=== PATIENT | female | born 1985 | race Caucasian/White ===

== ENCOUNTER 2017-11-05 20:46 | Inpatient (IN) | payer BC ==
[2017-11-05] MEDS: morphine 2 MG INJ IV (21:44)
[2017-11-05] MEDS ORDERED: morphine 2 MG INJ IV (22:00)
[2017-11-05] MEDS ORDERED: DOCUSATE SODIUM 100 MG CAP PO (22:00)
[2017-11-05] MEDS ORDERED: ACETAMINOPHEN 325 MG TAB PO (22:00)
[2017-11-05] MEDS ORDERED: ONDANSETRON 4 MG TAB PO (22:00)
[2017-11-05] MEDS ORDERED: BISACODYL (EC) 5 MG TAB PO (22:00)
[2017-11-05] MEDS ORDERED: NACL 0.9% 3 ML SYG IV (22:00)
[2017-11-05] MEDS ORDERED: VANCOMYCIN IV PER PHARMACY XX (22:00)
[2017-11-05 22:21] LABS: ADD MAN DIFF? NO
[2017-11-05 22:23] LABS: WHITE BLOOD COUNT 4.1 10^3/ul (4.8-10.8)
[2017-11-05 22:23] LABS: BASOPHILS % 0.7 % (0.0-2.0); EOSINOPHILS # 0.2 10^3/ul (0.0-0.5); EOSINOPHILS % 4.2 % (0.0-7.0); HEMATOCRIT 24.9 % (37.0-47.0); HEMOGLOBIN 7.8 g/dl (12.0-16.0); LYMPHOCYTES # 1.5 10^3/ul (0.8-2.9); LYMPHOCYTES % 36.9 % (15.0-51.0); MEAN CORPUSCULAR HEMOGLOBIN 27.3 pg (29.0-33.0); MEAN CORPUSCULAR HGB CONC 31.3 g/dl (32.0-37.0); MEAN CORPUSCULAR VOLUME 87.1 fl (82.0-101.0); MEAN PLATELET VOLUME 10.7 fl (7.4-10.4); MONOCYTE # 0.4 10^3/ul (0.3-0.9); MONOCYTES % 9.9 % (0.0-11.0); NEUTROPHILS % 48.1 % (39.0-77.0); PLATELET COUNT 213 10^3/UL (140-415); RED BLOOD COUNT 2.86 10^6/ul (4.20-5.40); RED CELL DISTRIBUTION WIDTH 13.8 % (11.5-14.5)
[2017-11-05] MEDS: metroNIDAZOLE 500 MG/NS (PMX) 100 ML IVPB (22:28)
[2017-11-05] MEDS ORDERED: LORAZEPAM 2 MG INJ IV (22:30)
[2017-11-05] MEDS ORDERED: GLUCOSE GEL 15 GRAM TUBE PO ×2 (22:30)
[2017-11-05] MEDS ORDERED: GLUCAGON 1 MG INJ IM (22:30)
[2017-11-05] MEDS ORDERED: DEXTROSE 50% 50 ML SYRINGE IV ×2 (22:30)
[2017-11-05] MEDS: HYDROmorphONE 1 MG/ML SYG IV (22:43)
[2017-11-05 22:49] LABS: ANION GAP 10 (8-16); BLOOD UREA NITROGEN 21 mg/dl (7-20); CALCIUM 8.5 mg/dl (8.4-10.2); CARBON DIOXIDE 30 mmol/L (21-31); CHLORIDE 97 mmol/L (97-110); CREATININE 0.72 mg/dl (0.44-1.00); POTASSIUM 5.1 mmol/L (3.5-5.1); SODIUM 132 mmol/L (135-144)
[2017-11-05 22:54] LABS: GLUCOSE 573 mg/dl (70-220)
[2017-11-05] MEDS: LEVOFLOXACIN 750MG/D5W (PMX) 150 ML IVPB (23:18)
[2017-11-05] MEDS: hydrALAzine 20 MG INJ IV (23:21)
[2017-11-05] MEDS: INSULIN ASPART [NOVOLOG] 3 ML PEN SC (23:22)
[2017-11-05] MEDS: INSULIN GLARGINE [LANtus] 3 ML PEN SC (23:32)
[2017-11-06] MEDS: HYDROCODONE/APAP (5/325) TAB PO
[2017-11-06] MEDS: VANCOMYCIN 1.5 GM in SOD CHLORIDE 0.9% 250 ML IVPB (00:57)
[2017-11-06 01:31] LABS: GLUCOSE 506 mg/dl (70-220)
[2017-11-06] MEDS: ACCU-CHEK XX (01:38)
[2017-11-06] MEDS: INSULIN ASPART [NOVOLOG] 3 ML PEN SC ×8 (01:50→21:51)
[2017-11-06 03:24] LABS: BARBITURATES Positive (NEGATIVE)
[2017-11-06] MEDS: HYDROmorphONE 1 MG/ML SYG IV ×6 (03:25→23:53)
[2017-11-06 03:32] LABS: AMPHETAMINE/METHAMPHETAMINE Negative (NEGATIVE); BENZODIAZEPINES Negative (NEGATIVE); CANNABINOIDS Negative (NEGATIVE); COCAINE Negative (NEGATIVE); OPIATES Positive (NEGATIVE)
[2017-11-06] MEDS: metroNIDAZOLE 500 MG/NS (PMX) 100 ML IVPB ×3 (05:40→21:40)
[2017-11-06 06:03] LABS: ADD MAN DIFF? NO
[2017-11-06 06:07] LABS: BASOPHILS % 0.6 % (0.0-2.0); EOSINOPHILS # 0.2 10^3/ul (0.0-0.5); EOSINOPHILS % 5.1 % (0.0-7.0); HEMOGLOBIN 7.9 g/dl (12.0-16.0); LYMPHOCYTES # 1.3 10^3/ul (0.8-2.9); LYMPHOCYTES % 37.8 % (15.0-51.0); MEAN CORPUSCULAR HEMOGLOBIN 28.2 pg (29.0-33.0); MEAN CORPUSCULAR HGB CONC 32.9 g/dl (32.0-37.0); MEAN CORPUSCULAR VOLUME 85.7 fl (82.0-101.0); MEAN PLATELET VOLUME 10.3 fl (7.4-10.4); MONOCYTE # 0.4 10^3/ul (0.3-0.9); MONOCYTES % 12.5 % (0.0-11.0); NEUTROPHIL # 1.6 10^3/ul (1.6-7.5); PLATELET COUNT 211 10^3/UL (140-415); RED CELL DISTRIBUTION WIDTH 13.7 % (11.5-14.5)
[2017-11-06 06:07] LABS: WHITE BLOOD COUNT 3.5 10^3/ul (4.8-10.8)
[2017-11-06 07:01] LABS: ALANINE AMINOTRANSFERASE 30 IU/L (13-69); ALBUMIN/GLOBULIN RATIO 0.93; ALKALINE PHOSPHATASE 140 IU/L (42-121); ANION GAP 8 (8-16); ASPARTATE AMINO TRANSFERASE 19 IU/L (15-46); BLOOD UREA NITROGEN 20 mg/dl (7-20); CALCIUM 8.9 mg/dl (8.4-10.2); CARBON DIOXIDE 30 mmol/L (21-31); CHLORIDE 103 mmol/L (97-110); CHOL/HDL RATIO 2.6 RATIO; CHOLESTEROL 194 mg/dl (100-200); CREATININE 0.74 mg/dl (0.44-1.00); GLUCOSE 134 mg/dl (70-220); HDL CHOLESTEROL 74 mg/dl (34-82); LDL CHOLESTEROL,CALCULATED 105 mg/dl; POTASSIUM 4.5 mmol/L (3.5-5.1); SODIUM 136 mmol/L (135-144); TOTAL PROTEIN 6.2 g/dl (6.1-8.1); TRIGLYCERIDES 73 mg/dl (0-149)
[2017-11-06 07:09] LABS: IRON 27 ug/dl (35-150)
[2017-11-06 07:18] LABS: % IRON SATURATION 9 % SAT (22-52); TOTAL IRON BINDING CAPACITY 296 ug/dl (241-421)
[2017-11-06 07:55] LABS: HEMOGLOBIN A1C 10.2 % (0-5.9)
[2017-11-06] MEDS: DIPHENHYDRAMINE 50 MG CAP PO (08:14)
[2017-11-06] MEDS: CYCLOBENZAPRINE 10 MG TAB PO (08:16)
[2017-11-06] MEDS: ENOXAPARIN 40 MG/0.4 ML SYG SC (08:16)
[2017-11-06] MEDS: SUMATRIPTAN 50 MG TAB PO (11:42)
[2017-11-06] MEDS: FOSFOMYCIN 3 GM PACKET PO (11:42)
[2017-11-06] MEDS: INSULIN GLARGINE [LANtus] 3 ML PEN SC ×2 (11:50→22:03)
[2017-11-06] MEDS: VANCOMYCIN 1 GM 250 ML IVPB (12:42)
[2017-11-06 14:10] LABS: OCCULT BLOOD STOOL NEGATIVE (NEGATIVE)
[2017-11-06] MEDS ORDERED: INSULIN GLARGINE [LANtus] 3 ML PEN SC (21:00)
[2017-11-06] MEDS: DIAZEPAM 5 MG TAB PO (23:52)
[2017-11-07] MEDS: LEVOFLOXACIN 750MG/D5W (PMX) 150 ML IVPB ×2 (00:03→23:20)
[2017-11-07] MEDS ORDERED: ALBUTEROL/IPRATROPIUM (NEB) 3 ML AMP (00:37)
[2017-11-07] MEDS: ACCU-CHEK XX (02:00)
[2017-11-07] MEDS: VANCOMYCIN 1 GM 250 ML IVPB ×2 (02:10→15:22)
[2017-11-07] MEDS: INSULIN ASPART [NOVOLOG] 3 ML PEN SC ×8 (02:36→20:17)
[2017-11-07] MEDS: HYDROmorphONE 1 MG/ML SYG IV ×5 (04:00→19:59)
[2017-11-07] MEDS: metroNIDAZOLE 500 MG/NS (PMX) 100 ML IVPB ×3 (05:52→21:46)
[2017-11-07] MEDS: ENOXAPARIN 40 MG/0.4 ML SYG SC (09:00)
[2017-11-07] MEDS: GLUCOSE GEL 15 GRAM TUBE BUCCAL (10:06)
[2017-11-07] MEDS: ALBUTEROL/IPRATROPIUM (NEB) 3 ML AMP HHN (10:49)
[2017-11-07] MEDS: TIZANIDINE 2 MG TAB PO ×2 (14:03→20:05)
[2017-11-07 14:53] LABS: VANCOMYCIN,TROUGH 13.8 ug/ml (10.0-20.0)
[2017-11-07 15:02] LABS: GLUCOSE 361 mg/dl (70-220)
[2017-11-07] MEDS: DIPHENHYDRAMINE 50 MG INJ IV (16:09)
[2017-11-07] MEDS: SODIUM HYPOCHLORITE 1/40% 1L IRRIG IRR (20:06)
[2017-11-07] MEDS: INSULIN GLARGINE [LANtus] 3 ML PEN SC (20:18)
[2017-11-08] MEDS: HYDROCODONE/APAP (5/325) TAB PO ×2 (00:15→21:31)
[2017-11-08] MEDS: HYDROmorphONE 1 MG/ML SYG IV ×4 (01:02→14:16)
[2017-11-08] MEDS: INSULIN ASPART [NOVOLOG] 3 ML PEN SC ×10 (01:22→21:11)
[2017-11-08] MEDS: ACCU-CHEK XX (02:00)
[2017-11-08] MEDS: VANCOMYCIN 1 GM 250 ML IVPB ×2 (03:29→16:16)
[2017-11-08] MEDS: metroNIDAZOLE 500 MG/NS (PMX) 100 ML IVPB ×3 (05:27→21:33)
[2017-11-08 05:37] LABS: ADD MAN DIFF? NO
[2017-11-08 05:43] LABS: BASOPHILS % 0.5 % (0.0-2.0); EOSINOPHILS # 0.1 10^3/ul (0.0-0.5); EOSINOPHILS % 2.6 % (0.0-7.0); HEMATOCRIT 24.3 % (37.0-47.0); HEMOGLOBIN 7.7 g/dl (12.0-16.0); LYMPHOCYTES # 1.1 10^3/ul (0.8-2.9); LYMPHOCYTES % 29.4 % (15.0-51.0); MEAN CORPUSCULAR HEMOGLOBIN 27.1 pg (29.0-33.0); MEAN CORPUSCULAR HGB CONC 31.7 g/dl (32.0-37.0); MEAN CORPUSCULAR VOLUME 85.6 fl (82.0-101.0); MEAN PLATELET VOLUME 10.5 fl (7.4-10.4); MONOCYTE # 0.2 10^3/ul (0.3-0.9); MONOCYTES % 4.9 % (0.0-11.0); NEUTROPHIL # 2.4 10^3/ul (1.6-7.5); NEUTROPHILS % 62.3 % (39.0-77.0); PLATELET COUNT 192 10^3/UL (140-415); RED BLOOD COUNT 2.84 10^6/ul (4.20-5.40); RED CELL DISTRIBUTION WIDTH 13.6 % (11.5-14.5)
[2017-11-08 05:43] LABS: WHITE BLOOD COUNT 3.9 10^3/ul (4.8-10.8)
[2017-11-08 06:21] LABS: ALANINE AMINOTRANSFERASE 23 IU/L (13-69); ALBUMIN 2.8 g/dl (3.3-4.9); ALBUMIN/GLOBULIN RATIO 0.93; ALKALINE PHOSPHATASE 166 IU/L (42-121); ANION GAP 11 (8-16); ASPARTATE AMINO TRANSFERASE 24 IU/L (15-46); BILIRUBIN,INDIRECT 0.1 mg/dl (0-1.1); BILIRUBIN,TOTAL 0.1 mg/dl (0.2-1.3); BLOOD UREA NITROGEN 24 mg/dl (7-20); CALCIUM 8.4 mg/dl (8.4-10.2); CARBON DIOXIDE 26 mmol/L (21-31); CHLORIDE 102 mmol/L (97-110); CREATININE 0.72 mg/dl (0.44-1.00); GLUCOSE 350 mg/dl (70-220); POTASSIUM 4.9 mmol/L (3.5-5.1); SODIUM 134 mmol/L (135-144); TOTAL PROTEIN 5.8 g/dl (6.1-8.1)
[2017-11-08 08:19] LABS: ERYTHROCYTE SEDIMENTATION RATE 55 mm/Hr (0-20)
[2017-11-08] MEDS: ENOXAPARIN 40 MG/0.4 ML SYG SC (09:00)
[2017-11-08] MEDS: TIZANIDINE 2 MG TAB PO ×3 (09:26→21:27)
[2017-11-08] MEDS: SOD CHLORIDE 0.45% 1,000 ML IV (09:27)
[2017-11-08] MEDS: SODIUM HYPOCHLORITE 1/40% 1L IRRIG IRR ×2 (09:28→21:00)
[2017-11-08] MEDS: DIPHENHYDRAMINE 50 MG INJ IV ×2 (11:21→20:48)
[2017-11-08] MEDS: ALBUTEROL/IPRATROPIUM (NEB) 3 ML AMP HHN (14:57)
[2017-11-08] MEDS: MEPERIDINE 25 MG INJ IV (18:55)
[2017-11-08] MEDS ORDERED: FENTAnyl 50 MCG/ML VIAL (19:54)
[2017-11-08] MEDS ORDERED: LIDOCAINE 2% (SDV) 5 ML INJ (19:54)
[2017-11-08] MEDS ORDERED: PROPOFOL 20 ML (19:54)
[2017-11-08] MEDS ORDERED: MIDAZOLAM 1 MG/ML 2 ML INJ (19:54)
[2017-11-08] MEDS ORDERED: OXYCODONE/ACETAMINOPHEN (5/325) TAB PO ×2 (20:00)
[2017-11-08] MEDS ORDERED: HYDROmorphONE 1 MG/5 ML IV SYRINGE IV (20:00)
[2017-11-08] MEDS ORDERED: PROCHLORPERAZINE 10 MG INJ IV (20:00)
[2017-11-08] MEDS ORDERED: FENTAnyl 50 MCG/ML VIAL IV (20:00)
[2017-11-08] MEDS ORDERED: ONDANSETRON 4 MG INJ IV (20:00)
[2017-11-08] MEDS ORDERED: MEPERIDINE 25 MG INJ IV (20:00)
[2017-11-08] MEDS ORDERED: ONDANSETRON 4 MG INJ (20:06)
[2017-11-08] MEDS ORDERED: ACETAMINOPHEN 1000MG/100ML IV 100 ML (20:06)
[2017-11-08] MEDS ORDERED: FAMOTIDINE 20 MG INJ (20:06)
[2017-11-08] MEDS: LIDOCAINE 2% (MDV) 20 ML INJ (20:34)
[2017-11-08] MEDS: HYDROmorphONE 1 MG/5 ML IV SYRINGE IV ×2 (20:40→20:54)
[2017-11-08] MEDS: FENTAnyl 50 MCG/ML VIAL IV ×2 (20:42→20:53)
[2017-11-08] MEDS: FERROUS SULFATE (EC) 325 MG TAB PO (21:27)
[2017-11-08] MEDS: INSULIN GLARGINE [LANtus] 3 ML PEN SC (21:36)
[2017-11-08] MEDS: LEVOFLOXACIN 750MG/D5W (PMX) 150 ML IVPB (23:02)
[2017-11-09] MEDS: HYDROmorphONE 1 MG/ML SYG IV ×6 (00:36→20:47)
[2017-11-09] MEDS: ACCU-CHEK XX (01:55)
[2017-11-09] MEDS: VANCOMYCIN 1 GM 250 ML IVPB ×2 (03:35→16:39)
[2017-11-09] MEDS: SOD CHLORIDE 0.45% 1,000 ML IV (05:30)
[2017-11-09] MEDS: metroNIDAZOLE 500 MG/NS (PMX) 100 ML IVPB ×2 (06:25→13:12)
[2017-11-09] MEDS: INSULIN ASPART [NOVOLOG] 3 ML PEN SC ×8 (07:57→20:46)
[2017-11-09] MEDS: FERROUS SULFATE (EC) 325 MG TAB PO ×2 (08:03→20:38)
[2017-11-09] MEDS: TIZANIDINE 2 MG TAB PO (08:03)
[2017-11-09] MEDS: ENOXAPARIN 40 MG/0.4 ML SYG SC (08:05)
[2017-11-09] MEDS: SODIUM HYPOCHLORITE 1/40% 1L IRRIG IRR ×2 (08:05→21:00)
[2017-11-09 11:15] LABS: ADD MAN DIFF? NO
[2017-11-09 11:21] LABS: BASOPHILS % 0.8 % (0.0-2.0); EOSINOPHILS # 0.1 10^3/ul (0.0-0.5); EOSINOPHILS % 3.7 % (0.0-7.0); HEMATOCRIT 29.3 % (37.0-47.0); HEMOGLOBIN 9.3 g/dl (12.0-16.0); LYMPHOCYTES # 1.2 10^3/ul (0.8-2.9); LYMPHOCYTES % 31.2 % (15.0-51.0); MEAN CORPUSCULAR HEMOGLOBIN 27.5 pg (29.0-33.0); MEAN CORPUSCULAR HGB CONC 31.7 g/dl (32.0-37.0); MEAN CORPUSCULAR VOLUME 86.7 fl (82.0-101.0); MEAN PLATELET VOLUME 10.3 fl (7.4-10.4); MONOCYTE # 0.3 10^3/ul (0.3-0.9); MONOCYTES % 9.1 % (0.0-11.0); NEUTROPHIL # 2.1 10^3/ul (1.6-7.5); NEUTROPHILS % 54.9 % (39.0-77.0); PLATELET COUNT 243 10^3/UL (140-415); RED BLOOD COUNT 3.38 10^6/ul (4.20-5.40); RED CELL DISTRIBUTION WIDTH 13.7 % (11.5-14.5)
[2017-11-09 11:21] LABS: WHITE BLOOD COUNT 3.8 10^3/ul (4.8-10.8)
[2017-11-09 11:40] LABS: ANION GAP 10 (8-16); BLOOD UREA NITROGEN 14 mg/dl (7-20); CALCIUM 8.7 mg/dl (8.4-10.2); CARBON DIOXIDE 26 mmol/L (21-31); CHLORIDE 107 mmol/L (97-110); CREATININE 0.81 mg/dl (0.44-1.00); GLUCOSE 52 mg/dl (70-220); PHOSPHORUS 4.2 mg/dl (2.5-4.9); POTASSIUM 4.1 mmol/L (3.5-5.1); SODIUM 139 mmol/L (135-144)
[2017-11-09] MEDS: HYDROCODONE/APAP (5/325) TAB PO (14:53)
[2017-11-09] MEDS: DIPHENHYDRAMINE 50 MG INJ IV (15:42)
[2017-11-09] MEDS: INSULIN GLARGINE [LANtus] 3 ML PEN SC (20:44)
[2017-11-10] MEDS: HYDROmorphONE 1 MG/ML SYG IV ×6 (01:48→21:40)
[2017-11-10] MEDS: LEVOFLOXACIN 750MG/D5W (PMX) 150 ML IVPB ×2 (01:48→22:44)
[2017-11-10] MEDS: ACCU-CHEK XX (01:57)
[2017-11-10] MEDS: VANCOMYCIN 1 GM 250 ML IVPB ×2 (04:19→16:44)
[2017-11-10] MEDS: INSULIN ASPART [NOVOLOG] 3 ML PEN SC ×7 (08:39→21:29)
[2017-11-10] MEDS: HYDROCODONE/APAP (5/325) TAB PO ×3 (08:44→22:46)
[2017-11-10] MEDS: ENOXAPARIN 40 MG/0.4 ML SYG SC (09:00)
[2017-11-10] MEDS: SODIUM HYPOCHLORITE 1/40% 1L IRRIG IRR ×2 (09:36→21:41)
[2017-11-10] MEDS: DIPHENHYDRAMINE 50 MG INJ IV (10:25)
[2017-11-10] MEDS: FERROUS SULFATE (EC) 325 MG TAB PO ×2 (10:25→21:20)
[2017-11-10 10:34] LABS: ADD MAN DIFF? NO
[2017-11-10 10:53] LABS: WHITE BLOOD COUNT 4.2 10^3/ul (4.8-10.8)
[2017-11-10 10:53] LABS: BASOPHILS % 0.9 % (0.0-2.0); EOSINOPHILS # 0.2 10^3/ul (0.0-0.5); EOSINOPHILS % 3.5 % (0.0-7.0); HEMATOCRIT 35.9 % (37.0-47.0); HEMOGLOBIN 10.9 g/dl (12.0-16.0); LYMPHOCYTES # 1.1 10^3/ul (0.8-2.9); LYMPHOCYTES % 26.5 % (15.0-51.0); MEAN CORPUSCULAR HEMOGLOBIN 26.8 pg (29.0-33.0); MEAN CORPUSCULAR HGB CONC 30.4 g/dl (32.0-37.0); MEAN CORPUSCULAR VOLUME 88.2 fl (82.0-101.0); MEAN PLATELET VOLUME 11.3 fl (7.4-10.4); MONOCYTE # 0.2 10^3/ul (0.3-0.9); MONOCYTES % 4.3 % (0.0-11.0); NEUTROPHIL # 2.7 10^3/ul (1.6-7.5); NEUTROPHILS % 63.9 % (39.0-77.0); RED BLOOD COUNT 4.07 10^6/ul (4.20-5.40); RED CELL DISTRIBUTION WIDTH 13.6 % (11.5-14.5)
[2017-11-10 11:00] LABS: PLATELET COUNT 157 10^3/UL (140-415); POSITIVE DIFF @See below
[2017-11-10 11:08] LABS: ANION GAP 15 (8-16); BLOOD UREA NITROGEN 21 mg/dl (7-20); CALCIUM 8.9 mg/dl (8.4-10.2); CARBON DIOXIDE 19 mmol/L (21-31); CHLORIDE 104 mmol/L (97-110); CREATININE 0.76 mg/dl (0.44-1.00); GLUCOSE 362 mg/dl (70-220); MAGNESIUM 1.9 mg/dl (1.7-2.5); PHOSPHORUS 3.8 mg/dl (2.5-4.9); POTASSIUM 4.7 mmol/L (3.5-5.1); SODIUM 133 mmol/L (135-144)
[2017-11-10] MEDS: DIPHENHYDRAMINE 50 MG CAP PO (21:20)
[2017-11-10] MEDS: INSULIN GLARGINE [LANtus] 3 ML PEN SC (21:28)
[2017-11-11] MEDS: HYDROmorphONE 1 MG/ML SYG IV ×5 (01:32→17:35)
[2017-11-11] MEDS: ACCU-CHEK XX (01:35)
[2017-11-11] MEDS: VANCOMYCIN 1 GM 250 ML IVPB ×2 (04:53→17:35)
[2017-11-11] MEDS: LOPERAMIDE 2 MG CAP PO ×2 (05:49→13:08)
[2017-11-11 06:16] LABS: ADD MAN DIFF? NO
[2017-11-11 06:19] LABS: BASOPHILS % 0.7 % (0.0-2.0); EOSINOPHILS # 0.2 10^3/ul (0.0-0.5); EOSINOPHILS % 4.4 % (0.0-7.0); HEMATOCRIT 28.5 % (37.0-47.0); HEMOGLOBIN 9.1 g/dl (12.0-16.0); LYMPHOCYTES # 1.1 10^3/ul (0.8-2.9); LYMPHOCYTES % 24.9 % (15.0-51.0); MEAN CORPUSCULAR HEMOGLOBIN 27.2 pg (29.0-33.0); MEAN CORPUSCULAR HGB CONC 31.9 g/dl (32.0-37.0); MEAN CORPUSCULAR VOLUME 85.1 fl (82.0-101.0); MEAN PLATELET VOLUME 10.6 fl (7.4-10.4); MONOCYTE # 0.3 10^3/ul (0.3-0.9); MONOCYTES % 6.5 % (0.0-11.0); NEUTROPHIL # 2.7 10^3/ul (1.6-7.5); NEUTROPHILS % 62.8 % (39.0-77.0); PLATELET COUNT 213 10^3/UL (140-415); RED BLOOD COUNT 3.35 10^6/ul (4.20-5.40); RED CELL DISTRIBUTION WIDTH 13.7 % (11.5-14.5)
[2017-11-11 06:19] LABS: WHITE BLOOD COUNT 4.3 10^3/ul (4.8-10.8)
[2017-11-11 07:14] LABS: ANION GAP 11 (8-16); BLOOD UREA NITROGEN 20 mg/dl (7-20); CARBON DIOXIDE 25 mmol/L (21-31); CHLORIDE 103 mmol/L (97-110); CREATININE 0.68 mg/dl (0.44-1.00); MAGNESIUM 1.9 mg/dl (1.7-2.5); PHOSPHORUS 4.4 mg/dl (2.5-4.9); POTASSIUM 4.7 mmol/L (3.5-5.1); SODIUM 134 mmol/L (135-144)
[2017-11-11 07:20] LABS: GLUCOSE 410 mg/dl (70-220)
[2017-11-11] MEDS: ENOXAPARIN 40 MG/0.4 ML SYG SC (09:00)
[2017-11-11] MEDS: INSULIN ASPART [NOVOLOG] 3 ML PEN SC ×7 (09:10→20:47)
[2017-11-11] MEDS: FERROUS SULFATE (EC) 325 MG TAB PO ×2 (09:15→20:44)
[2017-11-11] MEDS: DIPHENHYDRAMINE 50 MG INJ IV (10:00)
[2017-11-11] MEDS: SODIUM HYPOCHLORITE 1/40% 1L IRRIG IRR ×2 (13:10→20:45)
[2017-11-11] MEDS: HYDROCODONE/APAP (5/325) TAB PO ×2 (14:51→20:44)
[2017-11-11 16:03] LABS: VANCOMYCIN,TROUGH 14.7 ug/ml (10.0-20.0)
[2017-11-11] MEDS: DIPHENHYDRAMINE 25 MG CAP PO (18:19)
[2017-11-11] MEDS: INSULIN GLARGINE [LANtus] 3 ML PEN SC (20:51)
[2017-11-11] MEDS: LEVOFLOXACIN 750MG/D5W (PMX) 150 ML IVPB (22:16)
[2017-11-11] MEDS: HYDROmorphONE 0.5 MG/0.5 ML SYG IV (22:16)
[2017-11-12] MEDS: ACCU-CHEK XX (01:00)
[2017-11-12] MEDS: HYDROmorphONE 0.5 MG/0.5 ML SYG IV ×3 (02:21→10:28)
[2017-11-12] MEDS: VANCOMYCIN 1 GM 250 ML IVPB (03:04)
[2017-11-12] MEDS: INSULIN ASPART [NOVOLOG] 3 ML PEN SC ×4 (08:01→12:12)
[2017-11-12] MEDS: ENOXAPARIN 40 MG/0.4 ML SYG SC (08:02)
[2017-11-12] MEDS: FERROUS SULFATE (EC) 325 MG TAB PO (08:02)
[2017-11-12] MEDS: SODIUM HYPOCHLORITE 1/40% 1L IRRIG IRR (08:03)
[2017-11-12 08:23] LABS: ADD MAN DIFF? NO
[2017-11-12 08:31] LABS: WHITE BLOOD COUNT 4.2 10^3/ul (4.8-10.8)
[2017-11-12 08:31] LABS: BASOPHILS % 0.7 % (0.0-2.0); EOSINOPHILS # 0.3 10^3/ul (0.0-0.5); EOSINOPHILS % 6.4 % (0.0-7.0); HEMATOCRIT 26.9 % (37.0-47.0); HEMOGLOBIN 8.5 g/dl (12.0-16.0); LYMPHOCYTES # 1.4 10^3/ul (0.8-2.9); LYMPHOCYTES % 32.9 % (15.0-51.0); MEAN CORPUSCULAR HEMOGLOBIN 27.1 pg (29.0-33.0); MEAN CORPUSCULAR HGB CONC 31.6 g/dl (32.0-37.0); MEAN CORPUSCULAR VOLUME 85.7 fl (82.0-101.0); MEAN PLATELET VOLUME 10.8 fl (7.4-10.4); MONOCYTE # 0.4 10^3/ul (0.3-0.9); MONOCYTES % 8.7 % (0.0-11.0); NEUTROPHIL # 2.1 10^3/ul (1.6-7.5); NEUTROPHILS % 50.1 % (39.0-77.0); RED BLOOD COUNT 3.14 10^6/ul (4.20-5.40); RED CELL DISTRIBUTION WIDTH 14.5 % (11.5-14.5)
[2017-11-12 08:44] LABS: PLATELET COUNT 125 10^3/UL (140-415); POSITIVE DIFF @See below
[2017-11-12 08:49] LABS: ANION GAP 9 (8-16); BLOOD UREA NITROGEN 20 mg/dl (7-20); CALCIUM 8.8 mg/dl (8.4-10.2); CARBON DIOXIDE 21 mmol/L (21-31); CHLORIDE 109 mmol/L (97-110); CREATININE 0.66 mg/dl (0.44-1.00); GLUCOSE 81 mg/dl (70-220); MAGNESIUM 1.9 mg/dl (1.7-2.5); PHOSPHORUS 4.6 mg/dl (2.5-4.9); POTASSIUM 4.2 mmol/L (3.5-5.1); SODIUM 135 mmol/L (135-144)
[2017-11-12] MEDS: DIPHENHYDRAMINE 50 MG INJ IV (10:28)
[2017-11-12] MEDS: TRIMETHOPRIM/SULFAMETHOX (DS) TAB PO (10:28)
== END 2017-11-12 13:40 | disposition home or self-care (01) | DRG 580 ==
LOC: MS2 20:46
PROC: 0JDR0ZZ Extraction of Left Foot Subcutaneous Tissue and Fascia, Open Approach (ICD-10-PCS; principal; 2017-11-08 19:54)
DX: L03.116 Cellulitis of left lower limb (principal); N39.0 Urinary tract infection, site not specified; L97.329 Non-pressure chronic ulcer of left ankle with unspecified severity; L02.612 Cutaneous abscess of left foot; F11.10 Opioid abuse, uncomplicated; F15.90 Other stimulant use, unspecified, uncomplicated; G43.909 Migraine, unspecified, not intractable, without status migrainosus; D64.9 Anemia, unspecified; E10.622 Type 1 diabetes mellitus with other skin ulcer; R60.9 Edema, unspecified; G47.00 Insomnia, unspecified; Z91.14 Patient's other noncompliance with medication regimen
CPT/HCPCS: 71046; 73630-LT; 80048; 80053; 80061; 80202; 80307; 82270; 82947; 82962; 83036; 83540; 83735; 84100; 84443; 85025; 85651; 87045; 87070; 87075; 87102; 94640; 94664